=== PATIENT | female | born 1990 | race Caucasian/White ===

== ENCOUNTER 2017-07-27 06:36 | Emergency (ER) | payer SELFPAY ==
[~2017-07-27] VITALS: Ht 172.7 cm; Wt 120.2 kg
[~2017-07-27 06:36] MED LIST: ACHD5005 PO; BIRTH CONTROL; CEPH500C PO; CLON2TAB PO; CTLP20T PO; FAMO-119 PO; IBP800T PO; METR500T PO; ONDA8TAB13 PO
--- OUTSIDE RECORDS SUMMARY | 2017-07-27 06:42 | XMS REPORT ---
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 Name Role Phone ANDERSON TRAN Unavailable PROBLEMS Type Condition ICD9-CM Code [id number] Code Onset Dates Condition Status SNOMED Code Problem examination or test, positive result V72.42 Active [id number] ALLERGIES Substance Reaction Event Type Date Status Depo-Provera Unknown Drug Allergy Aug, Active ENCOUNTERS Encounter Location Date Diagnosis [facility] [id number] [place] [phone] Aug, Poison aktherine L23.7 [facility] [id number] [place] [phone] Nov, Nexplanon removal V25.43 and Irregular bleeding 626.4 [facility] [id number] [place] [phone] Nov, [place] [id number] [place] [phone] Nov, [facility] [id number] [place] [phone] Mar, [facility] [id number] [place] [phone] Mar, [facility] [id number] [place] [phone] Feb, [place] [id number] [place] [phone] Jan, IMMUNIZATIONS Vaccine Route Administration Date Status SOLUMEDROL (UP TO 125 MG) IM Intramuscular August 30, 2016 Administered SOCIAL HISTORY Never Assessed REASON FOR VISIT cleaning up the yard and thinks she got into something. started having a rash on her arms 2 days ago and now spread to her face. complaining of itching. kbullsue PLAN OF CARE VITAL SIGNS Height 68 in 2016-08-30 Weight 258.8 lbs 2016-08-30 Temperature 97.8 degrees Fahrenheit 2016-08-30 Heart Rate 88 bpm 2016-08-30 Respiratory Rate 20 2016-08-30 BMI 39.35 kg/m2 2016-08-30 Blood pressure systolic 126 mmHg 2016-08-30 Blood pressure diastolic 80 mmHg 2016-08-30 MEDICATIONS Medication Instructions Dosage Frequency Start Date End Date Duration Status PredniSONE 20 mg Orally Once a day 2 tablets 24h Aug, September, 05 days Active HydrOXYzine HCl 25 MG Orally every 6 hrs 1 tablet as needed 6h Aug, Active RESULTS No Results PROCEDURES Procedure Date Ordered Result Body Site SOLUMEDROL (UP TO 125 MG) August 30, 2016 THER/PROPH/DIAG INJ, SC/IM August 30, 2016 INSTRUCTIONS MEDICATIONS ADMINISTERED No Known Medications MEDICAL (GENERAL) HISTORY Type Description Date Medical History depression Medical History anxiety Surgical History tonsillectomy and adenoidectomy
[2017-07-27] MEDS ORDERED: LACTATED RINGERS 1,000 ML IV ONE (07:14)
[2017-07-27 07:19] LABS: BASOPHILS % (AUTO) 0 % (0-10); EOSINOPHILS # (AUTO) 0.2 10^3/uL (0.0-0.3); EOSINOPHILS % (AUTO) 2 % (0-10); HEMATOCRIT 41 % (35-52); HEMOGLOBIN 13.8 G/DL (11.5-16.0); LYMPHOCYTES # (AUTO) 3.6 X 10^3 (1.0-4.0); LYMPHOCYTES % (AUTO) 32 % (12-44); MEAN CORPUSCULAR HEMOGLOBIN 26 PG (25-34); MEAN CORPUSCULAR HGB CONC 33 G/DL (32-36); MEAN CORPUSCULAR VOLUME 76 FL (80-99); MEAN PLATELET VOLUME 9.7 FL (7.4-10.4); MONOCYTES # (AUTO) 0.7 X 10^3 (0.0-1.0); MONOCYTES % (AUTO) 6 % (0-12); NEUTROPHILS # (AUTO) 6.5 X 10^3 (1.8-7.8); NEUTROPHILS % (AUTO) 59 % (42-75); PLATELET COUNT 374 10^3/uL (130-400); RED BLOOD COUNT 5.42 10^6/uL (4.35-5.85); RED CELL DISTRIBUTION WIDTH 14.1 % (10.0-14.5); WHITE BLOOD COUNT 11.1 10^3/uL (4.3-11.0)
--- NOTE | 2017-07-27 07:19 | ED Abdominal Pain ---
General Chief Complaint: Abdominal/GI Problems Stated Complaint: AB PAIN Source of Information: Patient Exam Limitations: No Limitations History of Present Illness Date Seen by Provider: Jul 27, 2017 Time Seen by Provider: 07:00 Initial Comments PT ARRIVES VIA POV C/O LEFT MID ABDOMINAL PAIN THAT WOKE HER UP AT 0230 THIS AM PAIN COMES AND GOES AND IS NOT PRESENT NOW, IS EASED A LITTLE WITH APPLYING PRESSURE TO THE AREA AND WITH VOMITING HAS HAD NAUSEA AND VOMITED X 4-5. NO NAUSEA NOW. NO DIARRHEA NO URINARY SYMPTOMS NO FEVER NO HISTORY OF SIMILAR NO SICK CONTACTS OR SUSPICIOUS FOODS LMP 07/15/17.NORMAL. NO CONTROL PCP: NONE Allergies and Home Medications Allergies Coded Allergies: No Known Drug Allergies (Unverified , 07/26/12) Home Medications Hydrocodone/Ibuprofen 1 Each Tablet, 1-2 EACH PO Q4H Prescribed by: UMESH MORENO on 07/27/17 0940 Promethazine HCl 25 Mg Supp.rect, 25 MG RC Q4H Prescribed by: UMESH MORENO on 07/27/17 0940 Tamsulosin HCl 0.4 Mg Cap, 0.4 MG PO DAILY Prescribed by: UMESH MORENO on 07/27/17 0940 Patient Home Medication List Home Medication List Reviewed: Yes Review of Systems Constitutional: no symptoms reported Respiratory: No Symptoms Reported Cardiovascular: No Symptoms Reported Gastrointestinal: See HPI, Abdominal Pain, Denies Diarrhea, Nausea, Vomiting Genitourinary: No Symptoms Reported Musculoskeletal: no symptoms reported, No back pain Skin: no symptoms reported Psychiatric/Neurological: No Symptoms Reported Endocrine: No Symptoms Reported Hematologic/Lymphatic: No Symptoms Reported Past Xilbzzz-Odbven-Gzhxuf Hx Patient Social History Alcohol Use: Rarely Uses Recreational Drug Use: No Smoking Status: Current Everyday Smoker (1/2 PPD) Type Used: Cigarettes (1/2 PPD) Recent Foreign Travel: No Contact w/Someone Who Travel: No Immunizations Up To Date Tetanus Booster (TDap): Less than 5yrs Seasonal Allergies Seasonal Allergies: No Surgeries History of Surgeries: Yes (BMT'S) Surgeries: Adenoidectomy, Ear Surgery, Gallbladder, Tonsillectomy Respiratory History of Respiratory Disorde: No Cardiovascular History of Cardiac Disorders: No Neurological History of Neurological Disord: No Reproductive System : No Last Menstrual Period: Jul 15, 2017 Hx Reproductive Disorders: No Sexually Transmitted Disease: No Female Reproductive Disorders: Denies Genitourinary History of Genitourinary Disor: No Gastrointestinal History of Gastrointestinal Di: Yes (S/P MALLY) Gastrointestinal Disorders: Gall Bladder Disease Musculoskeletal History of Musculoskeletal Dis: No Endocrine History of Endocrine Disorders: No HEENT History of HEENT Disorders: Yes (S/P T&A, BMT'S) HEENT Disorders: Chronic Ear Infection, Tonsilitis Cancer History of Cancer: No Psychosocial History of Psychiatric Problem: Yes Behavioral Health Disorders: Anxiety, Depression Integumentary History of Skin or Integumenta: No Blood Transfusions History of Blood Disorders: No Family Medical History Significant Family History: No Pertinent Family Hx Physical Exam Vital Signs VS - Last 72 Hours, by Label 07/27/17 06:45 Temp 98.1 Pulse 120 Resp 20 B/P (MAP) 142/101 (115) O2 Delivery Room Air Capillary Refill : General Appearance: WD/WN, no apparent distress, obese HEENT: PERRL/EOMI Neck: normal inspection Respiratory: normal breath sounds, no respiratory distress, no accessory muscle use Cardiovascular: regular rate, rhythm, no murmur Gastrointestinal: normal bowel sounds, soft, no organomegaly, no pulsatile mass , No distended, No guarding, No rebound, tenderness (EPIGASTRIC, AND DIFFUSE LEFT SIDED ABDOMINAL TENDERNESS), No hernia, No mass Extremities: normal inspection Back: no CVA tenderness Neurologic/Psychiatric: health safety and environment manager II-XII nml as tested, no motor/sensory deficits, alert, normal mood/affect, oriented x 3 Skin: normal color, warm/dry, No rash Progress/Results/Core Measures Results/Orders Lab Results Laboratory Tests Test 07/27/17 07:00 Range/Units White Blood Count 11.1 H 4.3-11.0 10^3/uL Red Blood Count 5.42 4.35-5.85 10^6/uL Hemoglobin 13.8 11.5-16.0 G/DL Hematocrit 41 35-52 % Mean Corpuscular Volume 76 L 80-99 FL Mean Corpuscular Hemoglobin 26 25-34 PG Mean Corpuscular Hemoglobin Concent 33 32-36 G/DL Red Cell Distribution Width 14.1 10.0-14.5 % Platelet Count 374 130-400 10^3/uL Mean Platelet Volume 9.7 7.4-10.4 FL Neutrophils (%) (Auto) 59 42-75 % Lymphocytes (%) (Auto) 32 12-44 % Monocytes (%) (Auto) 6 0-12 % Eosinophils (%) (Auto) 2 0-10 % Basophils (%) (Auto) 0 0-10 % Neutrophils # (Auto) 6.5 1.8-7.8 X 10^3 Lymphocytes # (Auto) 3.6 1.0-4.0 X 10^3 Monocytes # (Auto) 0.7 0.0-1.0 X 10^3 Eosinophils # (Auto) 0.2 0.0-0.3 10^3/uL Basophils # (Auto) 0.0 0.0-0.1 10^3/uL Urine Color YELLOW Urine Clarity CLEAR Urine pH 5 5-9 Urine Specific [place] 1.015 L 1.016-1.022 Urine Protein NEGATIVE NEGATIVE Urine Glucose (UA) NEGATIVE NEGATIVE Urine Ketones NEGATIVE NEGATIVE Urine Nitrite NEGATIVE NEGATIVE Urine Bilirubin NEGATIVE NEGATIVE Urine Urobilinogen NORMAL NORMAL MG/DL Urine Leukocyte Esterase NEGATIVE NEGATIVE Urine RBC (Auto) 5+ H NEGATIVE Urine RBC >100 H /HPF Urine WBC RARE /HPF Urine Squamous Epithelial Cells 2-5 /HPF Urine Crystals NONE /LPF Urine Bacteria TRACE /HPF Urine Casts NONE /LPF Urine Mucus SMALL H /LPF Urine Culture Indicated NO Sodium Level 139 135-145 MMOL/L Potassium Level 3.8 3.6-5.0 MMOL/L Chloride Level 107 98-107 MMOL/L Carbon Dioxide Level 24 21-32 MMOL/L Anion Gap 8 5-14 MMOL/L Blood Urea Nitrogen 11 7-18 MG/DL Creatinine 0.79 0.60-1.30 MG/DL Estimat Glomerular Filtration Rate > 60 BUN/Creatinine Ratio 14 Glucose Level 97 70-105 MG/DL Calcium Level 9.1 8.5-10.1 MG/DL Total Bilirubin 0.3 0.1-1.0 MG/DL Aspartate Amino Transf (AST/SGOT) 17 5-34 U/L Alanine Aminotransferase (ALT/SGPT) 22 0-55 U/L Alkaline Phosphatase 79 40-136 U/L Total Protein 7.2 6.4-8.2 GM/DL Albumin 4.2 3.2-4.5 GM/DL Amylase Level 30 25-125 U/L Lipase 19 8-78 U/L My Orders Orders - UMESH MORENO DO Amylase (07/27/17 07:14) Cbc With Automated Diff (07/27/17 07:14) Comprehensive Metabolic Panel (07/27/17 07:14) Lipase (07/27/17 07:14) Ua Culture If Indicated (07/27/17 07:14) Urine Bedside (07/27/17 07:14) Saline Lock/Iv-Start (07/27/17 07:14) Lactated Ringers (Lr 1000 Ml Iv Solution (07/27/17 07:14) Abdomen, Flat & Upright/Decub (07/27/17 07:30) Ct Abd/Pelvis Wo(Kidney Stone) (07/27/17 07:30) Ketorolac Injection (Toradol Injection) (07/27/17 07:45) Ondansetron Injection (Zofran Injectio (07/27/17 07:45) Fentanyl Injection (Sublimaze Injection (07/27/17 08:38) Medications Given in ED Current Medications Medications Dose Ordered Sig/Bhavin Route Start Time Stop Time Status Last Admin Dose Admin Ketorolac Tromethamine 30 mg ONCE ONCE IVP 07/27/17 07:45 07/27/17 07:46 DC 07/27/17 07:45 30 MG Lactated Ringer's 1,000 ml @ 0 mls/hr Q0M ONCE IV 07/27/17 07:14 07/27/17 07:42 DC 07/27/17 07:48 1,000 MLS/HR Ondansetron HCl 4 mg ONCE ONCE IVP 07/27/17 07:45 07/27/17 07:46 DC 07/27/17 07:46 4 MG Vital Signs/I&O Vital Sign - Last 12Hours 07/27/17 06:45 Temp 98.1 Pulse 120 Resp 20 B/P (MAP) 142/101 (115) O2 Delivery Room Air Progress Note : Progress Note PAIN-FREE AT DISMISSAL. UNEVENTFUL ER STAY DELAY IN OBTAINING CT REPORT Diagnostic Imaging Comments ABDOMEN XRAYS--NO ACUTE PROCESS CT ABDOMEN/PELVIS--2-3 MM STONE IN BLADDER, SMALL STONE IN LEFT RENAL PELVIS, NO OBSTRUCTION--VERBAL REPORT FROM ASSISTANCE REPRESENTATIVE AT 0930 Reviewed: Reviewed by Me Departure Impression Impression: Primary Impression: Left ureteral calculus Disposition: 01 HOME, SELF-CARE Condition: Improved Departure-Patient Inst. Referrals: NO,LOCAL PHYSICIAN (PCP) Primary Care Physician BAR VOGT MD Patient Instructions: Kidney Stones (DC) Add. Discharge Instructions: STRAIN ALL URINE--RETURN ANY STONES TO DR'S OFFICE LOTS OF WATER FOLLOW UP WITH DR. VOGT THIS WEEK FOR FURTHER CARE All discharge instructions reviewed with patient and/or family. Voiced understanding. Scripts Tamsulosin HCl (Flomax) 0.4 Mg Cap 0.4 MG PO DAILY, #10 CAP Prov: UMESH MORENO DO 07/27/17 Hydrocodone/Ibuprofen (Hydrocodone-Ibuprofen 7.5-200) 1 Each Tablet 1-2 EACH PO Q4H for Pain, #20 TAB Prov: UMESH MORENO DO 07/27/17 Promethazine HCl (Phenergan) 25 Mg Supp.rect 25 MG RC Q4H for Nausea/Vomiting, #10 SUPP.RECT Prov: UMESH MORENO DO 07/27/17 UMESH MORENO DO Jul 27, 2017 07:19
[2017-07-27 07:20] LABS: BILIRUBIN,URINE NEGATIVE (NEGATIVE); CLARITY,URINE CLEAR; COLOR,URINE YELLOW; GLUCOSE, URINE (UA) NEGATIVE (NEGATIVE); KETONES,URINE NEGATIVE (NEGATIVE); LEUKOCYTE ESTERASE ,URINE NEGATIVE (NEGATIVE); NITRITE,URINE NEGATIVE (NEGATIVE); PH,URINE 5 (5-9); PROTEIN,URINE NEGATIVE (NEGATIVE); UROBILINOGEN,URINE NORMAL (NORMAL)
[2017-07-27 07:29] LABS: BACTERIA,URINE TRACE /HPF; RBC,URINE >100 /HPF
[2017-07-27 07:30] LABS: WBC,URINE RARE /HPF
[2017-07-27 07:34] LABS: ALANINE AMINOTRANSFERASE 22 U/L (0-55); ALBUMIN 4.2 GM/DL (3.2-4.5); ALKALINE PHOSPHATASE 79 U/L (40-136); AMYLASE 30 U/L (25-125); BILIRUBIN,TOTAL 0.3 MG/DL (0.1-1.0); BUN/CREATININE RATIO 14; CALCIUM 9.1 MG/DL (8.5-10.1); CARBON DIOXIDE 24 MMOL/L (21-32); CHLORIDE 107 MMOL/L (98-107); CREATININE SERUM 0.79 MG/DL (0.60-1.30); GFR ESTIMATED > 60; GLUCOSE 97 MG/DL (70-105); LIPASE 19 U/L (8-78); POTASSIUM 3.8 MMOL/L (3.6-5.0); SODIUM 139 MMOL/L (135-145); TOTAL PROTEIN 7.2 GM/DL (6.4-8.2)
[2017-07-27] MEDS ORDERED: KETOROLAC 30 MG/ML VIAL IVP ONE (07:45)
[2017-07-27] MEDS ORDERED: ONDANSETRON 4 MG/2 ML (SDV) Z0FRAN IVP ONE (07:45)
--- NOTE | 2017-07-27 08:16 | Diagnostic Imaging Report ---
Clinical indication: Patient with left-sided abdominal pain below the ribs x 6 hours. Exam: X-ray of the abdomen with multiple supine and upright views. Comparison: None. Findings: There is a nonobstructed bowel gas pattern. There is no evidence of abdominal free air. Surgical clips are seen overlying the right upper quadrant which could be related to cholecystectomy changes. There are no focal calcifications overlying the expected regions/ pathways of both kidneys, ureters, and bladder regions. The visualized bones and extra abdominal soft tissues are unremarkable. Impression: There is no radiographic evidence for acute abdominal/ pelvic process or urinary tract stones. Dictated by: Dictated on workstation # [id number]
[2017-07-27] MEDS ORDERED: fentaNYL INJECTION 100 MCG/2 ML AMP IVP STA (08:38)
--- NOTE | 2017-07-27 09:33 | Diagnostic Imaging Report ---
PROCEDURE: CT urinary tract, rule out kidney stone. TECHNIQUE: Multiple contiguous axial images were obtained through the abdomen and pelvis without the use of intravenous contrast. INDICATION: Left sided abdominal pain radiating to the chest. Comparison is made with prior exam from 04/18/2016. The lung bases are clear. No discrete liver mass is identified. The gallbladder is surgically absent. The pancreas and spleen are unremarkable. No adrenal mass is identified. The right kidney is unremarkable the left kidney does contain a 2-3 mm nonobstructive calculus. The aorta is not aneurysmal. Small and large bowel loops are of normal caliber. The appendix is unremarkable. There is no ascites. Bladder does demonstrate an approximately 2-3 mm calculus at the base near the midline. This may or represent a recently passed calculus. The uterus is unremarkable. Impression: 1. Tiny nonobstructing left renal calculus. In addition, there is a 2-3 mm calculus within the bladder consistent with a recently passed calculus. No other significant abnormality is detected. Dictated by: Dictated on workstation # [id number]
[2017-07-27] MEDS ORDERED: PROM25SU43 RC (09:40)
[2017-07-27] MEDS ORDERED: HYDR-87 PO (09:40)
[2017-07-27] MEDS ORDERED: TAMS0.4C98 PO (09:40)
[2017-07-27 09:49] VITALS: BP 133/84
== END 2017-07-27 09:49 | disposition home or self-care (01) ==
LOC: EDUNIT# 06:36 → ER 06:38
DX: N20.1 Calculus of ureter (principal); F41.9 Anxiety disorder, unspecified; F32.9 Major depressive disorder, single episode, unspecified; F17.210 Nicotine dependence, cigarettes, uncomplicated; Z90.89 Acquired absence of other organs; Z90.49 Acquired absence of other specified parts of digestive tract; Z87.19 Personal history of other diseases of the digestive system
CPT/HCPCS: 36415; 74019; 74176; 80053; 81000; 82150; 83690; 84703; 85025; 96361; 96374; 96375

== ENCOUNTER 2017-10-12 16:43 | Emergency (ER) | payer SELFPAY ==
[~2017-10-12] VITALS: Ht 172.7 cm; Wt 113.4 kg
[~2017-10-12 16:43] MED LIST changes: +HYDR-87 PO; +PROM25SU43 RC; +TAMS0.4C98 PO
--- NOTE | 2017-10-12 19:34 | Diagnostic Imaging Report ---
INDICATION: Rolled ankle, pain, swelling, bruising.. TECHNIQUE: 3 views of the left foot CORRELATION STUDY: None FINDINGS: The osseous structures of the foot are intact. Joint spaces are maintained. Alignment anatomic. Soft tissues appearing unremarkable. IMPRESSION: 1. Negative for acute findings of the foot. Dictated by: Dictated on workstation # [id number]
--- NOTE | 2017-10-12 19:39 | Diagnostic Imaging Report ---
INDICATION: Rolled ankle, pain, swelling and bruising TECHNIQUE: Three views of the left ankle CORRELATION STUDY: None FINDINGS: There is no acute fracture. Talar dome maintained. Question of very slight prominent appearance about the medial aspect of the ankle mortise may be projection. There is mild soft tissue swelling present. IMPRESSION: Negative for acute bony abnormality. Very questionable prominent appearance about the ankle mortise medially. Soft tissue swelling. Underlying ligamentous injury would be difficult to exclude. If symptoms persist, MRI may be of additional benefit. Dictated by: Dictated on workstation # [id number]
--- NOTE | 2017-10-12 19:46 | ED Lower Extremity ---
General Chief Complaint: Lower Extremity Stated Complaint: FALL, L FOOT INJ Nursing Triage Note: pt states she slipped and twisted ankle/foot when going down steps at home, also states she heard a popping sound. swelling noted to left ankle Nursing Sepsis Screen: No Definite Risk History of Present Illness Date Seen by Provider: Oct 12, 2017 Time Seen by Provider: 19:30 Initial Comments 27-year-old female presents for left ankle injury. She states she was going down a step at home when she twisted and rolled her left ankle. She denies any previous history of injuries to her ankles. She is concerned because she is driving to [place] in 2 days, where she is moving to and trying to pack her belongings for the trip. Onset: just prior to arrival Pain/Injury Location: left ankle Method of Injury: fell, twisted Allergies and Home Medications Allergies Coded Allergies: etonogestrel (Unverified Allergy, Unknown, uncontrolled bleeding x 3 months, 10/12/17) Uncoded Allergies: DEPO PROVERA (Allergy, Unknown, uncontrolled bleeding x3 months, 10/12/17) Home Medications Hydrocodone/Ibuprofen 1 Each Tablet, 1-2 EACH PO Q4H Prescribed by: UMESH MORENO on 07/27/17 0940 Promethazine HCl 25 Mg Supp.rect, 25 MG RC Q4H Prescribed by: UMESH MORENO on 07/27/17 0940 Tamsulosin HCl 0.4 Mg Cap, 0.4 MG PO DAILY Prescribed by: UMESH MORENO on 07/27/17 0940 Tramadol HCl 50 Mg Tablet, 50 MG PO Q8H PRN for PAIN-MODERATE Prescribed by: HUMPHREY FORTE on 10/12/172004 Patient Home Medication List Home Medication List Reviewed: Yes Constitutional: no symptoms reported, see HPI Musculoskeletal: see HPI, joint pain (left ankle), joint swelling (left ankle ) All Other Systems Reviewed Negative Unless Noted: Yes Past Jqnxfdb-Ylapdw-Avtbsf Hx Past Med/Social Hx: Reviewed Nursing Past Med/Soc Hx Patient Social History Alcohol Use: Denies Use Recreational Drug Use: No Smoking Status: Current Everyday Smoker Type Used: Cigarettes 2nd Hand Smoke Exposure: Yes Recent Foreign Travel: No Contact w/Someone Who Travel: No Recent Infectious Disease Expo: No Recent Hopitalizations: No Immunizations Up To Date Tetanus Booster (TDap): Less than 5yrs Seasonal Allergies Seasonal Allergies: No Past Medical History Surgeries: Yes (BMT'S) Adenoidectomy, Ear Surgery, Gallbladder, Tonsillectomy Respiratory: No Cardiac: No Neurological: No Reproductive Disorders: No Female Reproductive Disorders: Denies Sexually Transmitted Disease: No Genitourinary: No Gastrointestinal: Yes Gall Bladder Disease Musculoskeletal: No Endocrine: No HEENT: Yes (S/P T&A, BMT'S) Chronic Ear Infection, Tonsilitis Cancer: No Psychosocial: Yes Anxiety, Depression Integumentary: No Blood Disorders: No Family Medical History No Pertinent Family Hx Physical Exam Vital Signs Vital Signs - First Documented 10/12/17 19:16 Pulse 99 Resp 20 B/P (MAP) 149/90 (109) Pulse Ox 100 O2 Delivery Room Air Capillary Refill : Less Than 3 Seconds General Appearance: WD/WN, no apparent distress Neck: non-tender, full range of motion, supple, normal inspection Cardiovascular: normal peripheral pulses, regular rate, rhythm, no murmur Respiratory: chest non-tender, lungs clear, normal breath sounds Gastrointestinal: normal bowel sounds, non tender, soft Ankles: left ankle limited range of motion (secondary to pain), left ankle pain , left ankle soft tissue tenderness, left ankle swelling (lateral aspect), left ankle other (neurovascular status intact left lower extremity symmetric with the right, pedal pulses 2+ and symmetric, cap refill less than 2 seconds.) Neurologic/Tendon: normal sensation, normal motor functions, normal tendon functions Neurologic/Psychiatric: no motor/sensory deficits, alert, normal mood/affect, oriented x 3 Skin: normal color, warm/dry Progress/Results/Core Measures Results/Orders My Orders Orders - HUMPHREY FORTE Ibuprofen Tablet (Motrin Tablet) (10/12/17 19:53) Vital Signs/I&O 10/12/17 19:16 Pulse 99 Resp 20 B/P (MAP) 149/90 (109) Pulse Ox 100 O2 Delivery Room Air Blood Pressure Mean: 109 Progress Progress Note : Time: 19:30 Progress Note Initial evaluation completed, attempted Aircast and patient did not tolerate this for ambulation. Cam Walker boot applied, with 4 inch John Paul wrap. Ice pack given. Ibuprofen 800 mg orally for pain. 1999 discharge instructions and return precautions reviewed with the patient. All questions answered. Diagnostic Imaging Diagonstic Imaging: Xray Plain Films/CT/US/NM/MRI: ankle Comments NAME: CHARLENE VALDOVINOS [facility] REC#: [id number] PT STATUS: REG ER : 1990 PHYSICIAN: JANI BROWN MD ADMIT DATE: 10/12/17/ER Draft Date of Exam:10/12/17 ANKLE, LEFT, 3 VIEWS INDICATION: Rolled ankle, pain, swelling and bruising TECHNIQUE: Three views of the left ankle CORRELATION STUDY: None FINDINGS: There is no acute fracture. Talar dome maintained. Question of very slight prominent appearance about the medial aspect of the ankle mortise may be projection. There is mild soft tissue swelling present. IMPRESSION: Negative for acute bony abnormality. Very questionable prominent appearance about the ankle mortise medially. Soft tissue swelling. Underlying ligamentous injury would be difficult to exclude. If symptoms persist, MRI may be of additional benefit. Dictated on workstation # [id number] Dict: 10/12/171931 Trans: 10/12/171937 KARINE [id number] Interpreted by: LOUIE DEMPSEY DO Electronically signed by: Reviewed: Reviewed by Me Diagonstic Imaging: Xray Comments NAME: CHARLENE VALDOVINOS [facility] REC#: [id number] PT STATUS: REG ER : 1990 PHYSICIAN: JANI BROWN MD ADMIT DATE: 10/12/17/ER Signed Date of Exam: 10/12/17 FOOT, LEFT, 3 VIEWS INDICATION: Rolled ankle, pain, swelling, bruising.. TECHNIQUE: 3 views of the left foot CORRELATION STUDY: None FINDINGS: The osseous structures of the foot are intact. Joint spaces are maintained. Alignment anatomic. Soft tissues appearing unremarkable. IMPRESSION: 1. Negative for acute findings of the foot. Dictated by: Dictated on workstation # [id number] Dict: 10/12/171930 Trans: 10/12/171931 Interpreted by: LOUIE DEMPSEY DO Electronically signed by: LOUIE DEMPSEY DO 10/12/171931 Reviewed: Reviewed by Dc Departure Impression Primary Impression: Left ankle sprain Qualified Codes: S93.492A - Sprain of other ligament of left ankle, initial encounter Disposition: HOME, SELF-CARE Condition: Stable Departure-Patient Inst. Decision time for Depature: 20:00 Referrals: NO,LOCAL PHYSICIAN (PCP/Family) Primary Care Physician Patient Instructions: Ankle Sprain (DC) Add. Discharge Instructions: Ice and elevate left ankle, 20 minutes every 2 hours. Alternate between ibuprofen 800 mg and Tylenol 650 mg every 4 hours for pain. In addition to taking the Tramadol every 8 hours for further pain control. Use boot for ambulation. Gentle range of motion to the left ankle every 2 hours while awake. Obtain crutches is not able to ambulate without pain. Follow-up with your primary care provider in 2-3 days if symptoms are not improving or worsen. All discharge instructions reviewed with patient and/or family. Voiced understanding. Scripts Tramadol HCl (Tramadol HCl) 50 Mg Tablet 50 MG PO Q8H PRN for PAIN-MODERATE, #15 TAB 0 Refills Prov: HUMPHREY FORTE 10/12/17 HUMPHREY FORTE Oct 12, 2017 19:46
[2017-10-12] MEDS ORDERED: IBUPROFEN 800 MG (MOTRIN) TAB PO STA (19:53)
[2017-10-12] MEDS ORDERED: TRAM50TA2 PO (20:05)
[2017-10-12 20:18] VITALS: BP 149/90
== END 2017-10-12 20:20 | disposition home or self-care (01) ==
LOC: EDUNIT# 16:43 → ER 16:45
DX: S93.402A Sprain of unspecified ligament of left ankle, initial encounter (principal); F41.9 Anxiety disorder, unspecified; F32.9 Major depressive disorder, single episode, unspecified; F17.210 Nicotine dependence, cigarettes, uncomplicated; Z87.19 Personal history of other diseases of the digestive system; Z90.89 Acquired absence of other organs; Z88.8 Allergy status to other drugs, medicaments and biological substances; Z77.22 Contact with and (suspected) exposure to environmental tobacco smoke (acute) (chronic); X50.1XXA Overexertion from prolonged static or awkward postures, initial encounter; W10.9XXA Fall (on) (from) unspecified stairs and steps, initial encounter
CPT/HCPCS: 73610; 73630